=== PATIENT | male | born 1955 | race Caucasian/White ===

== ENCOUNTER → 2018-06-19 | Outpatient (CLI) | payer OTHER, MEDICARE ==
[~2018-06-19] MED LIST: ACETAMINOPHEN 325 MG TAB PO SCH; DARATUMUMAB IV SCH; DEXAMETHASONE 20 MG in NS 50 ML IV SCH; NS IV SCH
[2018-06-19 22:41] VITALS: BP 112/67
== END ==
LOC: F1NOP 10:16
PROVIDERS: ATTEND Internal Medicine Hematology & Oncology
DX: Z51.11 Encounter for antineoplastic chemotherapy (principal); C90.00 Multiple myeloma not having achieved remission
CPT/HCPCS: 96374; 96413; 96415; J1100; J1200; J9145

== ENCOUNTER 2018-06-20 10:13 | Outpatient (CLI) | payer OTHER, MEDICARE ==
[2018-06-20] MEDS ORDERED: DEXAMETHASONE 20 MG in NS 50 ML IV ONE (10:45)
[2018-06-20] MEDS ORDERED: ACETAMINOPHEN 325 MG TAB PO ONE (10:45)
[2018-06-20] MEDS ORDERED: NS IV ONE (10:45)
[2018-06-20] MEDS ORDERED: DARATUMUMAB IV ONE (10:45)
[2018-06-20 19:46] VITALS: BP 127/86
== END 2018-06-20 19:48 | disposition home or self-care (01) ==
LOC: F1NOP 10:13
PROVIDERS: ATTEND Internal Medicine Hematology & Oncology
DX: Z51.11 Encounter for antineoplastic chemotherapy (principal); C90.00 Multiple myeloma not having achieved remission
CPT/HCPCS: 96365; 96366; 96374; 96375; 96413; 96415; J1100; J1200; J9145

== ENCOUNTER → 2018-06-26 | Outpatient (CLI) | payer OTHER, MEDICARE ==
[~2018-06-26] MED LIST changes: +ACETAMINOPHEN 325 MG TAB PO ONE; -ACETAMINOPHEN 325 MG TAB PO SCH; +DARATUMUMAB IV ONE; -DARATUMUMAB IV SCH; +DEXAMETHASONE 20 MG in NS 50 ML IV ONE; -DEXAMETHASONE 20 MG in NS 50 ML IV SCH; +NS IV ONE; -NS IV SCH
[2018-06-26 16:26] VITALS: BP 109/74
== END ==
LOC: F1NOP 11:11
PROVIDERS: ATTEND Internal Medicine Hematology & Oncology
DX: Z51.11 Encounter for antineoplastic chemotherapy (principal); C90.00 Multiple myeloma not having achieved remission
CPT/HCPCS: 96374; 96375; 96413; 96415; J1100; J1200; J9145

== ENCOUNTER → 2018-07-03 | Outpatient (CLI) | payer OTHER, MEDICARE ==
[~2018-07-03] MED LIST changes: +DEXAMETHASONE 20 MG in D5W 50 ML IV ONE; -DEXAMETHASONE 20 MG in NS 50 ML IV ONE
[2018-07-03 21:04] VITALS: BP 106/66
== END ==
LOC: F1NOP 12:01
PROVIDERS: ATTEND Internal Medicine Hematology & Oncology
DX: Z51.11 Encounter for antineoplastic chemotherapy (principal); C90.00 Multiple myeloma not having achieved remission
CPT/HCPCS: 96374; 96375; 96413; 96415; J1100; J1200; J9145

== ENCOUNTER 2018-07-10 10:17 | Outpatient (CLI) | payer OTHER, MEDICARE ==
[2018-07-10] MEDS ORDERED: ACETAMINOPHEN 325 MG TAB PO SCH (11:30)
[2018-07-10] MEDS ORDERED: DEXAMETHASONE 20 MG in NS 50 ML IV SCH (11:30)
[2018-07-10] MEDS ORDERED: NS IV SCH (12:00)
[2018-07-10] MEDS ORDERED: DARATUMUMAB IV SCH (12:00)
[2018-07-10 14:40] VITALS: BP 134/77
== END 2018-07-10 15:36 | disposition home or self-care (01) ==
LOC: F1NOP 10:17
PROVIDERS: ATTEND Internal Medicine Hematology & Oncology
DX: C90.00 Multiple myeloma not having achieved remission (principal)
CPT/HCPCS: 96413; 96415; J1100; J1200; J9145

== ENCOUNTER 2018-07-17 09:46 | Outpatient (CLI) | payer OTHER, MEDICARE ==
[2018-07-17] MEDS ORDERED: DEXAMETHASONE 20 MG in NS 50 ML IV ONE (10:30)
[2018-07-17] MEDS ORDERED: ACETAMINOPHEN 325 MG TAB PO ONE (10:30)
[2018-07-17] MEDS ORDERED: DARATUMUMAB IV ONE (11:30)
[2018-07-17] MEDS ORDERED: NS IV ONE (11:30)
[2018-07-17 13:55] VITALS: BP 117/72
== END 2018-07-17 15:39 | disposition home or self-care (01) ==
LOC: F1NOP 09:46
PROVIDERS: ATTEND Internal Medicine Hematology & Oncology
DX: C90.00 Multiple myeloma not having achieved remission (principal)
CPT/HCPCS: 96374; 96375; 96413; 96415; J1100; J1200; J9145

== ENCOUNTER 2018-07-24 10:18 | Outpatient (CLI) | payer OTHER, MEDICARE ==
[~2018-07-24 10:18] MED LIST changes: -DEXAMETHASONE 20 MG in D5W 50 ML IV ONE; +DEXAMETHASONE 20 MG in NS 50 ML IV ONE
[2018-07-24 13:12] VITALS: BP 101/70
== END 2018-07-24 15:01 | disposition home or self-care (01) ==
LOC: F1NOP 10:18
PROVIDERS: ATTEND Internal Medicine Hematology & Oncology
DX: Z51.11 Encounter for antineoplastic chemotherapy (principal); C90.00 Multiple myeloma not having achieved remission
CPT/HCPCS: 96374; 96375; 96413; 96415; J1100; J1200; J9145

== ENCOUNTER 2018-07-31 10:07 | Outpatient (CLI) | payer OTHER, MEDICARE | END 2018-07-31 20:45 | disposition home or self-care (01) | LOC: F1NOP 10:07 ==

== ENCOUNTER 2018-08-07 10:25 | Outpatient (CLI) | payer OTHER, MEDICARE ==
[~2018-08-07 10:25] MED LIST changes: -DARATUMUMAB IV ONE; -NS IV ONE
[2018-08-07] MEDS ORDERED: NS IV ONE (11:00)
[2018-08-07] MEDS ORDERED: DARATUMUMAB IV ONE (11:00)
[2018-08-07 13:48] VITALS: BP 108/68
== END 2018-08-07 15:45 | disposition home or self-care (01) ==
LOC: F1NOP 10:25
PROVIDERS: ATTEND Internal Medicine Hematology & Oncology
DX: Z51.11 Encounter for antineoplastic chemotherapy (principal); C90.00 Multiple myeloma not having achieved remission
CPT/HCPCS: 96374; 96375; 96413; 96415; J1100; J1200; J9145

== ENCOUNTER → 2018-08-21 | Outpatient (CLI) | payer OTHER, MEDICARE ==
[~2018-08-21] MED LIST changes: +DARATUMUMAB IV ONE; +DEXAMETHASONE 20 MG in D5W 50 ML IV ONE; -DEXAMETHASONE 20 MG in NS 50 ML IV ONE; +NS IV ONE
[2018-08-21 15:37] VITALS: BP 109/65
== END ==
LOC: F1NOP 09:40
PROVIDERS: ATTEND Internal Medicine Hematology & Oncology
DX: Z51.11 Encounter for antineoplastic chemotherapy (principal); C90.00 Multiple myeloma not having achieved remission
CPT/HCPCS: 96374; 96375; 96413; 96415; J1100; J1200; J9145

== ENCOUNTER 2018-09-04 09:52 | Outpatient (CLI) | payer OTHER, MEDICARE ==
[~2018-09-04 09:52] MED LIST changes: -DARATUMUMAB IV ONE; -DEXAMETHASONE 20 MG in D5W 50 ML IV ONE; +DEXAMETHASONE 20 MG in NS 50 ML IV ONE; -NS IV ONE
[2018-09-04] MEDS ORDERED: DARATUMUMAB IV ONE (10:00)
[2018-09-04] MEDS ORDERED: NS IV ONE (10:00)
[2018-09-04 15:02] VITALS: BP 121/81
== END 2018-09-04 15:30 | disposition home or self-care (01) ==
LOC: F1NOP 09:52
PROVIDERS: ATTEND Internal Medicine Hematology & Oncology
DX: Z51.11 Encounter for antineoplastic chemotherapy (principal); C90.00 Multiple myeloma not having achieved remission
CPT/HCPCS: 96374; 96375; 96413; 96415; J1100; J1200; J9145

== ENCOUNTER → 2018-09-18 | Outpatient (CLI) | payer OTHER, MEDICARE ==
[~2018-09-18] MED LIST changes: +DARATUMUMAB IV ONE; +NS IV ONE
[2018-09-18 14:44] VITALS: BP 103/67
== END ==
LOC: F1NOP 09:33
PROVIDERS: ATTEND Internal Medicine Hematology & Oncology
DX: Z51.11 Encounter for antineoplastic chemotherapy (principal)
CPT/HCPCS: 96413; 96415; J1100; J1200; J9145

== ENCOUNTER 2018-10-02 09:46 | Outpatient (CLI) | payer OTHER, MEDICARE ==
[~2018-10-02 09:46] MED LIST changes: -DARATUMUMAB IV ONE; +DEXAMETHASONE 20 MG in D5W 50 ML IV ONE; -DEXAMETHASONE 20 MG in NS 50 ML IV ONE; -NS IV ONE
[2018-10-02] MEDS ORDERED: NS IV ONE (10:00)
[2018-10-02] MEDS ORDERED: DARATUMUMAB IV ONE (10:00)
[2018-10-02 15:17] VITALS: BP 122/65
== END 2018-10-02 16:18 | disposition home or self-care (01) ==
LOC: F1NOP 09:46
PROVIDERS: ATTEND Internal Medicine Hematology & Oncology
DX: C90.00 Multiple myeloma not having achieved remission (principal)
CPT/HCPCS: 96374; 96375; 96413; 96415; J1100; J1200; J9145

== ENCOUNTER → 2018-10-16 | Outpatient (CLI) | payer OTHER, MEDICARE | LOC: F1NOP 09:34 ==

== ENCOUNTER → 2018-10-30 | Outpatient (CLI) | payer OTHER, MEDICARE | LOC: F1NOP 09:45 ==

== ENCOUNTER 2018-11-13 09:41 | Outpatient (CLI) | payer OTHER, MEDICARE | END 2018-11-13 15:00 | disposition home or self-care (01) | LOC: F1NOP 09:41 ==

== ENCOUNTER → 2018-11-27 | Outpatient (CLI) | payer OTHER, MEDICARE | LOC: F1NOP 09:52 ==